=== PATIENT | female | born 1985 | race African-American/Black ===

== ENCOUNTER 2017-03-26 00:27 | Emergency (ER) | payer SELFPAY ==
[2017-03-26] MEDS ORDERED: LIDOCAINE 1% INJ-PF (10 MG/ML) 30 ML SDV INJ ONE (01:41)
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
[2017-03-26] MEDS ORDERED: HYDROCODONE/ACETAMINOPHEN 5-325 MG 6 TAB/DSPK PO PRN (02:38)
[2017-03-26 02:52] VITALS: BP 122/68
== END 2017-03-26 02:42 | disposition home or self-care (01) ==
LOC: ER 00:27
PROC: 0CQ0XZZ Repair Upper Lip, External Approach (ICD-10-PCS; principal; 2017-03-26)
DX: S01.511A Laceration without foreign body of lip, initial encounter (principal); X99.8XXA Assault by other sharp object, initial encounter
CPT/HCPCS: 99282; 40830; J3490

== ENCOUNTER 2018-01-24 00:12 | Emergency (ER) | payer SELFPAY ==
[2018-01-24] MEDS ORDERED: HALOPERIDOL 5 MG TABLET PO ONE (01:31)
--- NOTE | 2018-01-24 01:32 | ER Document Report ---
ED General - General Chief Complaint: Palpitations Stated Complaint: PALPITATIONS Time Seen by Provider: 01/24/18 01:20 Notes: Patient is a 32-year-old female without chronic medical problems who presents with multiple complaints. Her main concern is that "there is something wrong with my arms and feet". She also states that "there might be something wrong with my heart because I just be tired all the time". Patient reports that she picks at the bottom of her feet with a knife but is unable to state why she does so. She denies any intent to harm herself simply saying that these areas are irritating and she feels like this relieves her symptoms. She denies having similar symptoms prior to the past several months. She has not seen her general doctor regarding today's concerns. She denies any fever, weakness, numbness, headache, neck pain, alcohol or drug use. TRAVEL OUTSIDE OF THE [place] IN LAST 30 DAYS: No - Related Data Allergies/Adverse Reactions: No Known Allergies Allergy (Verified 11/27/13 20:51) Past Medical History - General Information source: Patient - Social History Smoking Status: Never Smoker Frequency of alcohol use: None Drug Abuse: None Lives with: Spouse/Significant other Family History: Reviewed & Not Pertinent Renal/ Medical History: Denies: Hx Peritoneal Dialysis - Immunizations Hx Diphtheria, Pertussis, Tetanus Vaccination: Yes Review of Systems - Review of Systems Notes: Constitutional: Negative for fever. HENT: Negative for sore throat. Eyes: Negative for visual changes. Cardiovascular: Negative for chest pain. Positive palpitations Respiratory: Negative for shortness of breath. Gastrointestinal: Negative for abdominal pain, vomiting or diarrhea. Genitourinary: Negative for dysuria. Musculoskeletal: Positive for bilateral arm pain and bilateral feet pain Skin: Negative for rash. Neurological: Negative for headaches, weakness or numbness. 10 point ROS negative except as marked above and in HPI. Physical Exam - Vital signs Interpretation: Tachycardic Notes: PHYSICAL EXAMINATION: GENERAL: Well-appearing, well-nourished and in no acute distress. HEAD: Atraumatic, normocephalic. EYES: Pupils equal round and reactive to light, extraocular movements intact, sclera anicteric, conjunctiva are normal. ENT: nares patent, oropharynx clear without exudates. Moist mucous membranes. NECK: Normal range of motion, supple without lymphadenopathy LUNGS: Breath sounds clear to auscultation bilaterally and equal. No wheezes rales or rhonchi. HEART: Regular rate and rhythm without murmurs ABDOMEN: Soft, nontender, normoactive bowel sounds. No guarding, no rebound. No masses appreciated. EXTREMITIES: Normal range of motion, no pitting or edema. No cyanosis. NEUROLOGICAL: Face symmetric. Tongue protrudes midline. Extraocular motions intact. Pupils are 2 mm and equally reactive. Normal speech, normal gait. 5 out of 5 strength in both the distal and proximal upper and lower extremities bilaterally. Sensation is grossly intact throughout. Finger to nose testing normal. Pronator drift normal. PSYCH: Anxious, appears somewhat intoxicated SKIN: Warm, Dry, normal turgor, superficial skin avulsions to the bilateral feet Course - Re-evaluation Re-evalutation: 01/24/18 01:30 Patient presents with multiple vague complaints that did not appear to be concerning for any acute life-threatening pathology. Vitals are within normal limits at triage and at time of discharge. Physical examination is unremarkable. Patient has tolerated oral intake without difficulty. Patient was not noted to be in distress at any point during their ER visit. At this time, based on the reassuring evaluation, I do not suspect an acute FL, pulmonary embolus, aortic dissection, acute intra-abdominal pathology, stroke, or sepsis. Will discharge with return precautions and follow-up recommendations. Patient are extraordinarily unusual and are changing from provider to provider. She has had improvement of her symptoms after receiving oral haloperidol. Verbal discharge instructions given a the bedside and opportunity for questions given. Medication warnings reviewed. Patient is in agreement with this plan and has verbalized understanding of return precautions and the need for primary care follow-up in the next 24-72 hours. - Laboratory Result Diagrams: 01/24/18 01:55 01/24/18 01:55 Laboratory results interpreted by me: 01/24/18 01/24/18 01:55 01:55 Hgb 10.7 L Hct 32.3 L RDW 16.5 H Est GFR (Non-Af Amer) 53 L Discharge - Discharge Clinical Impression: Multiple complaints, Bilateral foot pain, Palpitations Condition: Good Disposition: HOME, SELF-CARE Additional Instructions: Please return to the emergency room immediately if you experience any concerning symptoms including high fevers, severe headache, chest pain, difficulty breathing, abdominal pain, slurred speech, numbness or weakness in your arms or legs, or any other symptom that concerns you. Your labs are all normal today. Please discontinue trying to cut the bottom of your feet with a knife.
[2018-01-24 02:15] LABS: HEMATOCRIT 32.3 % (36.0-47.0); HEMOGLOBIN 10.7 g/dL (12.0-15.5); MEAN CORPUSCULAR HEMOGLOBIN 28.6 pg (27.0-33.4); MEAN CORPUSCULAR HGB CONC 33.1 g/dL (32.0-36.0); MEAN CORPUSCULAR VOLUME 86 fl (80-97); PLATELET COUNT 337 10^3/uL (150-450); RED BLOOD COUNT 3.74 10^6/uL (3.72-5.28); RED CELL DISTRIBUTION WIDTH 16.5 % (11.5-14.0); WHITE BLOOD COUNT 6.7 10^3/uL (4.0-10.5)
[2018-01-24 02:52] LABS: ANION GAP 8 (5-19); BLOOD UREA NITROGEN 15 mg/dL (7-20); CALCIUM 9.7 mg/dL (8.4-10.2); CARBON DIOXIDE 29 mmol/L (22-30); CHLORIDE 104 mmol/L (98-107); GLUCOSE 101 mg/dL (75-110); POTASSIUM 3.8 mmol/L (3.6-5.0); SODIUM 141.4 mmol/L (137-145)
--- NOTE | 2018-01-24 07:23 | EKG REPORT ---
SEVERITY:- BORDERLINE ECG - SINUS TACHYCARDIA BORDERLINE T WAVE ABNORMALITIES : Confirmed by: Cele Hinkle MD 24-Jan-2018 07:23:00
== END 2018-01-24 03:55 | disposition home or self-care (01) ==
LOC: ER 00:12
DX: R00.2 Palpitations (principal); M79.601 Pain in right arm; M79.602 Pain in left arm; M79.671 Pain in right foot; M79.672 Pain in left foot; F41.9 Anxiety disorder, unspecified
CPT/HCPCS: 36415; 80048; 84703; 85027; 93005; 93010; 99285